=== PATIENT | female | born 1970 | race Caucasian/White ===

== ENCOUNTER 2017-08-15 22:36 | Emergency (ER) | payer MEDICAID ==
[~2017-08-15] VITALS: Ht 160 cm; Wt 81.0 kg
[~2017-08-15 22:36] MED LIST: ASPI-650 PO; BP MEDS PO; GLUCOPHAGE PO; OXYC-306 PO; [UNRECOGNIZED DRUG - OTHER] PO
[2017-08-15] MEDS ORDERED: SODIUM CHLORIDE 0.9% 1,000 ML IV ONE (22:43)
[2017-08-15] MEDS ORDERED: SODIUM CHLORIDE 0.9% 1,000ML IVBOLUS ONE (23:00)
[2017-08-15] MEDS ORDERED: SODIUM CHLORIDE FLUSH 10ML SYR IVF ONE (23:00)
[2017-08-15] MEDS ORDERED: ONDANSETRON 2MG/ML, 2ML IVPush ONE (23:00)
[2017-08-15 23:01] LABS: BASOPHILS # (AUTO) 0.01 x10^3/uL (0-0.1); BASOPHILS % (AUTO) 0 % (0-1); EOSINOPHILS # (AUTO) 0.08 x10^3/uL (0-0.4); EOSINOPHILS % (AUTO) 2 % (1-7); LYMPHOCYTES # (AUTO) 0.45 x10^3/uL (1-3.4); LYMPHOCYTES % (AUTO) 10 % (22-44); MD NO; MEAN CORPUSCULAR HGB CONC 33.6 g/dL (32.4-35.8); MEAN CORPUSCULAR VOLUME 89.2 fL (80-100); MEAN PLATELET VOLUME 6.7 fL (7.4-10.4); MONOCYTES # (AUTO) 0.68 x10^3/uL (0.2-0.8); MONOCYTES % (AUTO) 15 % (2-9); NEUTROPHILS # (AUTO) 3.31 x10^3/uL (1.8-6.8); NEUTROPHILS % (AUTO) 73 % (42-75); PLATELET COUNT 254 x10^3/uL (130-400); RED BLOOD COUNT 4.05 x10^6/uL (3.82-5.3); RED CELL DISTRIBUTION WIDTH 14.7 % (9.6-15.2)
[2017-08-15 23:12] LABS: ALANINE AMINOTRANSFERASE 43 U/L (12-78); ALBUMIN 3.5 g/dL (3.4-5.0); ANION GAP 8 mmol/L (5-15); CALCIUM 8.6 mg/dL (8.5-10.1); CHLORIDE 105 mmol/L (98-107)
[2017-08-15 23:17] LABS: ALKALINE PHOSPHATASE 84 U/L (45-117); BILIRUBIN,TOTAL 0.4 mg/dL (0.2-1.0); CREATININE 0.73 mg/dL (0.55-1.02); TOTAL PROTEIN 7.6 g/dL (6.4-8.2); TROPONIN I < 0.015 ng/mL (0.000-0.045)
[2017-08-15 23:21] LABS: RAPID INFLUENZA A POSITIVE (Negative); RAPID INFLUENZA B Negative (Negative)
[2017-08-15] MEDS ORDERED: KETOROLAC 30 MG/1 ML IVPush ONE (23:30)
[2017-08-16] MEDS ORDERED: KETOROLAC 30 MG/1 ML ONE
[2017-08-16] MEDS ORDERED: ONDANSETRON 2MG/ML, 2ML ONE
[2017-08-16 01:10] VITALS: BP 159/88
== END 2017-08-16 01:15 | disposition home or self-care (01) ==
LOC: ED 08-16 00:40
DX: J09.X3 Influenza due to identified novel influenza A virus with gastrointestinal manifestations (principal); J09.X2 Influenza due to identified novel influenza A virus with other respiratory manifestations; E11.9 Type 2 diabetes mellitus without complications; I10 Essential (primary) hypertension; J44.9 Chronic obstructive pulmonary disease, unspecified; E66.9 Obesity, unspecified; Z88.0 Allergy status to penicillin; Z88.5 Allergy status to narcotic agent; Z88.8 Allergy status to other drugs, medicaments and biological substances
CPT/HCPCS: 36415; 71045; 80053; 83605; 84484; 85025; 87400; 93005; 96361; 96374; 96375; 99285; J1885; J2405; J7030

== ENCOUNTER 2018-10-24 21:33 | Emergency (ER) | payer MEDICAID ==
[~2018-10-24] VITALS: Ht 160 cm; Wt 96.0 kg
[2018-10-24 21:35] VITALS: BP 139/86
[2018-10-24] MEDS ORDERED: DEXAMETHASONE 4 MG/ML, 1ML PO ONE (23:00)
[2018-10-24] MEDS ORDERED: DEXAMETHASONE 4 MG TABLET ONE (23:03)
== END 2018-10-24 23:21 | disposition home or self-care (01) ==
LOC: ED 23:15
DX: B34.9 Viral infection, unspecified (principal); J44.9 Chronic obstructive pulmonary disease, unspecified; E11.9 Type 2 diabetes mellitus without complications; I10 Essential (primary) hypertension
CPT/HCPCS: 71046; 99283; J1100